=== PATIENT | female | born 1980 | race Caucasian/White ===

== ENCOUNTER 2023-08-20 10:53 | Emergency (ER) | payer SELFPAY ==
[2023-08-20 11:05] VITALS: BP 141/90
--- NOTE | 2023-08-20 11:08 | ED.GENMED ---
History of Present Illness
General
Chief Complaint: Musculo-Skeletal Complaint
Time Seen by Provider: 08/20/23 11:08
Travel History
Have you had any contact with someone who has COVID-19?: No
Do you have any symptoms of coronavirus? Fever > 100 degrees, chills, cough, shortness of breath, sore throat, loss of taste or smell, muscle aches, or headache?: No
History of Present Illness
History of Present Illness:
HPI: Patient presents with left knee discomfort. This been ongoing for the past 2 weeks. There has been no direct trauma. Keeping the knee straight helps and bending makes it worse. She feels a clicking/popping sensation as well. She denies any
other injury or concerns and has had no fevers.
EXAM:
GENERAL: Well appearing in no distress
NEUROLOGIC: Excellent strength all extremities, no coordination deficits
PSYCHIATRIC: Appropriate mental status, normal insight and judgement
EXTREMITIES: No significant bony tenderness to the left knee, there is decreased active range of motion to flexion at the left knee, there is no significant effusion and there is no sign for septic joint, no evidence for patellar or quadriceps
tendon rupture, negative Juan Ramon test and negative drawer testing
SKIN: No rash, no lesions
TIME OF INITIAL ENCOUNTER: 11:30 AM
NUMBER AND COMPLEXITY OF PROBLEMS ADDRESSED AT THE ENCOUNTER
� Chronic conditions affecting care: IBS, anxiety, has had cholecystectomy
� Acute Exacerbation and/or Progression of Chronic Illness: This is an acute problem
� Differential Diagnosis includes: Internal derangement of the left knee, meniscal injury, ACL/MCL injury
AMOUNT AND/OR COMPLEXITY OF DATA TO BE REVIEWED AND ANALYZED
� I performed an independent evaluation of and my interpretation is:
EKG:
CT:
X-rays: X-rays personally viewed and I see no acute abnormality
Laboratory Studies:
Other:
� Review of other/old records: The patient had colonoscopy last year
� Clinical information was obtained by an independent historian: I spoke to the at the bedside
� Prescriptions/Medications Considered but not given:
� Further testing considered but not performed:
RISK OF COMPLICATIONS AND/OR MORBIDITY OR MORTALITY OF PATIENT MANAGEMENT
� Social determinants of health affecting care: Lives at home
� Discussion with other providers:
� Escalation of care including admission/observation vs risk of discharge considered: Will place knee immobilizer. She already is on NSAIDs. She would like to follow-up with [facility] as her has been there in the past.
Will add tramadol to help sleep at night.
Past History
Past History
ED Past Medical History: None
ED Past Surgical History: None; Negative Orthopedic
Social History
Tobacco: Non-smoker
Alcohol: None
Drug: None
Personal:
Living: with family
Employment: Employed
Family History
Family History: Other (Noncontributory)
Phy Exam
Physical Exam
Physical Exam:
See HPI
Course
Orders/Labs/Results
Orders:
Orders
08/20/23 11:07
Knee, Left 4 or More Views [CR Knee - Left 4 Or More View*] Urgent
Comment:
Reason For Exam: left knee pain for days denies injury
08/20/23 11:35
Knee Immobilizer Left-Treatmen ONCE
Vital Signs
Initial and Last Documented VS:
Initial Vital Signs
Temp Pulse Resp BP Pulse Ox
98.1 F 92 16 141/90 98
08/20/23 11:05 08/20/23 11:05 08/20/23 11:05 08/20/23 11:05 08/20/23 11:05
Last Documented Vital Signs
Temp Pulse Resp BP Pulse Ox
98.1 F 92 16 141/90 98
08/20/23 11:05 08/20/23 11:05 08/20/23 11:05 08/20/23 11:05 08/20/23 11:05
*Critical Care Note
Total Time (30-74mins, 75-104mins- exclusive of procedures): Not Applicable
ED Attending Note
-
Portions of this chart may have been created with voice recognition software.� Occasional wrong word or��sound alike� substitutions may have occurred due to the inherent limitations of voice recognition software.
Discharge Plan
Departure
Patient Disposition: Home (Routine Discharge)
Date of Disposition: 08/20/23
Time of Disposition: 11:38
Patient with high blood pressure during this ER visit?: Yes
Discharge Problem:
Internal derangement of knee
Instructions: Knee Immobilizer (DC), Knee Pain (DC)
Prescriptions:
New
tramadol 50 mg tablet
50 - 100 mg PO Q8H PRN (Reason: Pain) Qty: 14 0RF
No Action
paroxetine HCl 10 MG tablet
10 mg PO DAILY
hyoscyamine sulfate 0.375 MG tablet extended release 12 hr
0.375 mg PO DAILY
oxycodone-acetaminophen 5 MG/325 MG tablet
1 tab PO Q4HPRN PRN (Reason: pain) Qty: 11 0RF
ibuprofen 600 MG tablet
600 mg PO Q6HPRN PRN (Reason: pain) Qty: 20 0RF
Referrals:
Bridger Dolan MD [Family Provider] -
Toni Lovell MD [Active] - Follow up in 2-3 days
Activity Restrictions/Additional Instructions:
Continue taking ibuprofen/Motrin. I sent a prescription for tramadol to your pharmacy. You can take tramadol along with the NSAIDs. I have given you the contact information for Dr. Lovell. Use knee immobilizer�take the knee immobilizer off a
few times a day to help exercise the knee.
Interventions
Interventions:
*ED COVID-19 Vaccine History Last Done: 08/20/23 11:05
ED-Musculoskeletal Assessment Last Done: 08/20/23 11:28
== END 2023-08-20 12:06 | disposition home or self-care (01) ==
LOC: EMR 10:53
PROVIDERS: EMERGENCY PHYSICIAN Emergency Medicine; FAMILY PHYSICIAN Family Medicine
DX: M23.92 Unspecified internal derangement of left knee (principal); R03.0 Elevated blood-pressure reading, without diagnosis of hypertension; K58.9 Irritable bowel syndrome, unspecified; F41.9 Anxiety disorder, unspecified; Z90.49 Acquired absence of other specified parts of digestive tract
CPT/HCPCS: 99283; 29505; 73564

== ENCOUNTER → 2023-09-19 17:54 | Outpatient (REF) | payer BC, SELFPAY | LOC: WDC 17:54 | PROVIDERS: ATTENDING PHYSICIAN Obstetrics & Gynecology Gynecology; FAMILY PHYSICIAN Family Medicine | DX: Z12.31 Encounter for screening mammogram for malignant neoplasm of breast (principal) | CPT/HCPCS: 77063; 77067 ==

== ENCOUNTER → 2023-09-25 14:44 | Outpatient (REF) | payer BC, SELFPAY | LOC: HWRAD 14:44 | PROVIDERS: ATTENDING PHYSICIAN Obstetrics & Gynecology Gynecology; FAMILY PHYSICIAN Physician Assistant | DX: N83.209 Unspecified ovarian cyst, unspecified side (principal) | CPT/HCPCS: 76830; 76856 ==

== ENCOUNTER → 2024-09-12 08:36 | Outpatient (REF) | payer BC, SELFPAY | LOC: RAD 08:36 | PROVIDERS: ATTENDING PHYSICIAN Obstetrics & Gynecology Gynecology; FAMILY PHYSICIAN Physician Assistant | DX: N83.209 Unspecified ovarian cyst, unspecified side (principal) | CPT/HCPCS: 76830; 76856 ==

== ENCOUNTER → 2024-10-10 19:18 | Outpatient (REF) | payer BC, SELFPAY | LOC: WDC 19:18 | PROVIDERS: ATTENDING PHYSICIAN Obstetrics & Gynecology Gynecology; FAMILY PHYSICIAN Physician Assistant | DX: Z12.31 Encounter for screening mammogram for malignant neoplasm of breast (principal) | CPT/HCPCS: 77063; 77067 ==

== ENCOUNTER → 2024-11-19 10:28 | Outpatient (REF) | payer BC, SELFPAY | LOC: MRI 10:28 | PROVIDERS: ATTENDING PHYSICIAN Obstetrics & Gynecology Gynecology; FAMILY PHYSICIAN Physician Assistant | DX: N83.202 Unspecified ovarian cyst, left side (principal) | CPT/HCPCS: 72197; A9575 ==